=== PATIENT | male | born 1955 | race Caucasian/White ===

== ENCOUNTER → 2023-01-23 | Outpatient (CLI) | payer OTHER ==
--- NOTE | 2023-01-23 13:27 | XR ---
EXAMINATION TYPE: XR chest 2V DATE OF EXAM: 01/23/2023 1:13 PM COMPARISON: None TECHNIQUE: XR chest 2V Frontal and lateral views of the chest. CLINICAL INDICATION:Male, 67 years old with history of M23.92 [id number]; FINDINGS: Lungs/Pleura: There is flattening of the diaphragm with increased lucency of the lungs. No evidence o f pneumothorax, pleural effusion or focal consolidation. Pulmonary vascularity: Unremarkable. Heart/mediastinum: Cardiomediastinal silhouette is unremarkable. Musculoskeletal: No acute osseous pathology. IMPRESSION: 1. No acute cardiopulmonary disease process. 2. COPD changes.
[2023-01-23 13:49] LABS: Basophils % (A) 0 %; Eosinophils % (A) 1 %; HCT 42.8 % (39.0-53.0); HGB 14.8 gm/dL (13.0-17.5); Lymphocytes # (A) 1.5 k/uL (1.0-4.8); Lymphocytes % (A) 32 %; MCH 31.8 pg (25.0-35.0); MCHC 34.7 g/dL (31.0-37.0); MCV 91.8 fL (80.0-100.0); Mean Platelet Volume 7.2; Monocytes # (A) 0.3 k/uL (0-1.0); Monocytes % (A) 7 %; Neutrophils # (A) 2.6 k/uL (1.3-7.7); Neutrophils % (A) 57 %; Platelet Count 220 k/uL (150-450); RBC 4.66 m/uL (4.30-5.90); RDW 13.3 % (11.5-15.5); WBC 4.5 k/uL (3.8-10.6)
[2023-01-23 14:09] LABS: African American GFR (CKD) >90 (>60 ml/min/1.73 sqM); Anion Gap 8 mmol/L; Blood Urea Nitrogen 15 mg/dL (9-20); Carbon Dioxide 28 mmol/L (22-30); Chloride 96 mmol/L (98-107); Glucose 99 mg/dL (74-99); Non-African American GFR(CKD) >90 (>60 ml/min/1.73 sqM); Potassium 4.1 mmol/L (3.5-5.1); Sodium 132 mmol/L (137-145)
== END ==
LOC: PAT 12:24
PROVIDERS: ATTEND Orthopaedic Surgery
DX: Z01.818 Encounter for other preprocedural examination (principal); M23.92 Unspecified internal derangement of left knee
CPT/HCPCS: 36415; 71046; 80048; 85025; 93005

== ENCOUNTER 2023-01-29 12:12 | Day surgery (SDC) | payer OTHER ==
[2023-01-24 15:35] VITALS: BMI 28.5
--- NOTE | 2023-01-29 08:43 | P.HPOR ---
History of Present Illness H&P Date: 01/29/23 Chief Complaint: Left knee pain The patient is a 67-year-old retired gentleman who presents with left knee pain after injury golfing in October of this year. He notes medial pain and swelling along with intermittent locking and giving way. He's tried rest along with medications without much relief. He has daily symptoms that limit him. Review of Systems Negative except as in HPI Past Medical History Past Medical History: Asthma, COPD, GERD/Reflux, Hypertension, Sleep Apnea/CPAP/BIPAP Additional Past Medical History / Comment(s): USES C-PAP OFF AND ON AT TIMES History of Any Multi-Drug Resistant Organisms: None Reported Past Surgical History: Tonsillectomy Additional Past Surgical History / Comment(s): HEMATOMA GROIN CHILD. FATTY TUMOR REMVED FROM LEFT UPPER CHEST. THYROGLOSSAL STONE RT FRONT PAST OF NECK. COLONOSCOPIES Past Anesthesia/Blood Transfusion Reactions: No Reported Reaction Smoking Status: Current every day smoker - Past Family History Father Family Medical History: Cancer Mother Family Medical History: Cancer Medications and Allergies Home Medications Medication Instructions Recorded Confirmed Type Albuterol Sulfate [Proair 1 puff INHALATION Q6H PRN 01/24/23 01/24/23 History Respiclick] Aspirin EC [Ecotrin Low Dose] 81 mg PO DAILY 01/24/23 01/24/23 History Atorvastatin [Lipitor] 20 mg PO HS 01/24/23 01/24/23 History Fluticasone Propion/Salmeterol 1 inhalation PO BID 01/24/23 01/24/23 History [Fluticasone-Salmeterol 250-50] L.acidoph,Paracasei, B.lactis 1 each PO DAILY 01/24/23 01/24/23 History [Probiotic] Losartan/Hydrochlorothiazide 1 tab PO DAILY 01/24/23 01/24/23 History [Losartan-Hctz 100-12.5 mg Tab] Multivit-Mins/Iron/Folic/Lycop 1 each PO DAILY 01/24/23 01/24/23 History [Centrum Men's Tablet] [place]-3/Dha/Epa/Fish Oil [Fish Oil 1 each PO DAILY 01/24/23 01/24/23 History 500 mg Softgel] Pantoprazole [Protonix] 40 mg PO DAILY 01/24/23 01/24/23 History Sildenafil Citrate 50 mg PO DIRECTED 01/24/23 01/24/23 History Vitamin B Complex 1 each PO DAILY 01/24/23 01/24/23 History buPROPion HCL [buPROPion HCL Xl] 150 mg PO DAILY 01/24/23 01/24/23 History Allergies Allergy/AdvReac Type Severity Reaction Status Date / Time bee venom protein (honey bee) Allergy Anaphylaxis Verified 01/24/23 15:23 lisinopril Allergy Rash/Hives Verified 01/24/23 15:23 Physical Examination - Knee left Appearance: effusion Effusion grade: grade 1 Valgus alignment in stance: 5 degrees Tenderness with palpation: medial Pain: throughout ROM Gait: limping ROM: extension: -10 degrees ROM: flexion: 120 degrees Crepitus with motion: Yes Strength: extension: 5/5 Strength: flexion: 5/5 Meniscal tests: medial meniscal tests: positive, medial joint line pain: positive Results Patient is a well-developed well-nourished male approximately 6 foot tall, 210 pounds of mesomorphic habitus. HEENT exam is nonfocal, neck is supple. He has painless passive motion of his left hip. Straight leg raise negative. His distal neurovascular appears intact in the left lower extremity. - Diagnostic results Knee MRI: image reviewed (Left knee MRI shows evidence of a posterior medial meniscal tear) Assessment and Plan Assessment: Left knee internal derangement/symptomatic medial meniscal tear Plan: I talked with the patient with regarding his condition along with treatment options. At this point he is quite symptomatic and limited because of pain despite attempted conservative measures. After thorough discussion he opted to proceed with surgery. We'll plan to proceed with left knee arthroscopy with probable partial medial meniscectomy. Risks and benefits were discussed at length in layman's terms. We will likely perform that as an outpatient procedure.
[~2023-01-29 12:12] MED LIST: DEXAMETHASONE SOD PHOSPHATE 4 MG/ML 1 ML VIAL IV ONE; HYDROmorphone 0.5 MG/0.5 ML SYRINGE IVP PRN; LACTATED RINGERS 1,000 ML IV SCH; LIDOCAINE 1% (10MG/ML) FOR IV START INTRADERMA PRN; METOCLOPRAMIDE 5 MG/ML 2 ML VIAL IVP PRN; MIDAZOLAM 2 MG/2 ML VIAL IV PRN; ONDANSETRON 4 MG/2 ML VIAL IVP ONE; fentaNYL (PF) 50 MCG/ML 2 ML AMP IVP PRN
[2023-01-29 13:11] VITALS: RESP 16
[2023-01-29] MEDS ORDERED: fentaNYL (PF) 50 MCG/ML 2 ML AMP ONE (13:53)
[2023-01-29] MEDS ORDERED: LIDOCAINE 2% INJ 20 MG/ML (2 ML VIAL) ONE (13:53)
[2023-01-29] MEDS ORDERED: ROCURONIUM 10 MG/ML (5 ML VIAL) IV ONE (13:53)
[2023-01-29] MEDS ORDERED: GLYCOPYRROLATE 0.2 MG/ML 2 ML VIAL ONE (13:53)
[2023-01-29] MEDS ORDERED: PROPOFOL 10 MG/ML 20 ML VIAL IV ONE (13:53)
[2023-01-29] MEDS ORDERED: MIDAZOLAM 2 MG/2 ML VIAL ONE (13:53)
[2023-01-29] MEDS ORDERED: SUCCINYLCHOLINE CHLORIDE 200 MG/10 ML VIAL IV ONE (13:53)
[2023-01-29] MEDS ORDERED: NEOSTIGMINE 1 MG/ML 10 ML VIAL ONE (13:53)
--- NOTE | 2023-01-29 14:46 | P.OP ---
Date of Procedure: 01/29/23 Preoperative Diagnosis: Left knee internal derangement Postoperative Diagnosis: Left knee posterior medial meniscal tear Procedure(s) Performed: Left knee arthroscopic partial medial meniscectomy Anesthesia: BHARATA Surgeon: Eleno Henderson Estimated Blood Loss (ml): 10 Pathology: none sent Condition: stable Disposition: PACU Indications for Procedure: The patient's 67-year-old male who presents with progressive left knee pain and mechanical symptoms after a recent twisting injury. A discussion of the risks and benefits of operative intervention versus continued conservative measures. Patient. He opted to proceed with surgery. Operative risks to include infection, neurovascular injury, development of blood clots, possible incomplete resolution of symptoms, possible worsening symptoms and need for subsequent procedures was discussed. Informed consent was obtained. Operative Findings: As below Description of Procedure: The patient was brought to the operating room, and after induction of general anesthesia examined the left knee. Collaterals were stable, Parvez was negative, and posterior drawer was negative. The left lower extremity was prepped and draped in a normal fashion. A superior lateral portal was made through a 3 mm skin incision superior and lateral to the patella. This was used for outflow. A lateral portal was made through a 5 mm vertical skin incision lateral to the patella tendon above the joint line. Diagnostic arthroscopy was performed. On inspection of the medial compartment, a complex tear involving the posterior horn of the medial meniscus in the white-red junction was noted. This was debrided back to stable base with straight baskets and a motorized shaver. The remaining medial meniscus was stable and intact. Grade 2 -3 chondral changes were noted involving the posterior central portion of the medial femoral condyle. On inspection of the notch, the anterior cruciate ligament appeared to be intact. On inspection of the lateral compartment, no significant meniscal or cartilage pathology was noted.. On inspection of the patellofemoral articulation, there was grade 2-3 chondral changes diffusely.. The gutters were clear debris. The knee was then thoroughly irrigated. The portals were closed with Steri-Strips. A sterile dressing was applied in addition to a compression stocking. The patient was awoken from general anesthesia and transferred to recovery room in good condition. Blood loss was estimated at 10 mL. No complications were incurred.
[2023-01-29 14:57] VITALS: TEMP 96.8
[2023-01-29] MEDS ORDERED: HYDROcodone/APAP 5-325MG 1 EACH TAB PO ONE (15:53)
[2023-01-29] MEDS ORDERED: HYDROcodone/APAP 5-325MG 1 EACH TAB ONE (15:54)
[2023-01-29 16:14] VITALS: BP 144/84; PULSE 78
== END 2023-01-29 16:33 | disposition home or self-care (01) ==
LOC: OR 12:12
PROVIDERS: ATTEND Orthopaedic Surgery
DX: S83.232A Complex tear of medial meniscus, current injury, left knee, initial encounter (principal); X50.1XXA Overexertion from prolonged static or awkward postures, initial encounter; J44.9 Chronic obstructive pulmonary disease, unspecified; I10 Essential (primary) hypertension; G47.33 Obstructive sleep apnea (adult) (pediatric); F17.200 Nicotine dependence, unspecified, uncomplicated; F41.9 Anxiety disorder, unspecified; K21.9 Gastro-esophageal reflux disease without esophagitis; Z79.51 Long term (current) use of inhaled steroids; Z79.82 Long term (current) use of aspirin; Z79.899 Other long term (current) drug therapy; Z91.030 Bee allergy status; Z88.8 Allergy status to other drugs, medicaments and biological substances
CPT/HCPCS: 29881; J2250; J0330; J1100; J2710; J0690; J2405; J3010; J2704; J1170; J2001

== ENCOUNTER → 2025-03-14 | Outpatient (CLI) | payer OTHER ==
[2025-03-14 09:57] VITALS: BP 158/88; PULSE 74; RESP 16; TEMP 97.3
--- NOTE | 2025-03-14 16:52 | P.PAINPG ---
PQRS Measure Charge Sheet Comment: HISTORY OF PRESENT ILLNESS: A 69 yr old male as a referral from the [facility] presents today w severe and chronic LBP > 1 yr secondary to radiculopathy, spondylosis and facet arthropathy without myelopathy for evaluation. Pt states pain level is provoked at 8 /10 in intensity, constant, localized in the lumbar spine, predominantly axial, sore in character w occasional shooting pain towards the buttocks and hips. Pain is provoked by bending, standing/ walking for periods > 15 min. Pain is alleviated by PT x 6 wks which ended in 2022, physician guided home exercises 4-5 times weekly since 2022, heat, ice, medications, topical, repositioning and rest . Oswestry axial pain score at 29. PMH: OA, Asthma, COPD, GERD, HTN, LONG PSH: L Knee Arthroscopy (2022), Tonsillectomy, Colonoscopies SH: Daily tobacco use, No ETOH abuse, No illicit drug use FH: Fa- CA. Mo- CA All: See list Medications include Robaxin 500mg, Ibu, Lidocaine REVIEW OF ORGAN SYSTEMS: CONSTITUTIONAL: No fevers or chills. No recent weight loss. NEUROLOGICAL: + numbness and tingling along the distal extremities. No seizure disorders or headaches. MUSCULOSKELETAL: + pain PSYCHIATRIC: Denies current depression or suicidal thoughts. Physical Examinations : Constitutional : Cooperative , not in acute distress . Neurologic : Cranial nerve II to XII intact. No focal neurological deficits. Psychiatric : alert & oriented x 3. Matching mood & appropriate affect. Judgment & insight intact. Musculoskeletal : Cervical Spine Motor strength in the deltoid and biceps: Normal right side. Normal Left side Motor strength biceps and the wrist extensors: Normal right side . Normal left side Motor strength in the triceps muscle: Normal right side. Normal left side Deep tendon reflexes: Normal at the biceps. Normal at Brachioradialis. Normal at triceps Lhermitte Sign (cervical flexion) positive Vertebral body tenderness to deep palpation over Cervical facet loading test: positive bilaterally Spurling test: positive bilaterally Neck distraction test: positive bilaterally Daniel sign: positive bilaterally Shoulders Muscle bulk/ tone/ strength BL Resisted Internal Rotation positive R / positive L Resisted External Rotation positive R / positive L Empty Can Test positive R / positive L Drop Arm Test positive R / positive L Lumbar spine Motor strength lower extremities ,thigh and legs 5/5 Right side , 5/5 Left side Deep tendon reflexes : Normal Knee Jerk. Normal Ankle Jerk Vertebral body tenderness over L4 Fan Test positive Lumbar facet Loading Test: positive Right / positive Left Range of motion of the lumbar spine Flexion 30 degrees, extension 10 degrees Straight Leg Raise test: Left/ Right positive at < 35 degrees Drop foot reflex: positive R / positive L Mani test: positive right / positive left. Severe tenderness over the Sacroiliac joint on the Right / Left sides Gaenslen test: positive bilaterally Sacral spine : Severe tenderness over the Sacroiliac joint: right side / left side Range of motion: Flexion of the lumbar spine <60 degrees Range of motion: Extension of the lumbar spine <20 degrees Gaenslen's Test positive Mani test: positive right side / left side Thigh Thrust Test Sacral Thrust Test Hip Joint Antalgic walking gait positive Trendelenburg positive R / positive L Imaging: MRI non contrast lumbar spine from 12/13/24 reviewed Assessment/ Plan : L2-L5 radiculopathy, mild dextroscoliosis, facet arthropathy Recommendation of BL TFESI L4-L5 #1. Risks, benefits of procedure discussed and patient verbalized understanding. Admits to anti- coagulant use or medical history of diabetes. Protocol for discontinuation/ continuation of medications ted procedure discussed. Minimal anesthesia provided, if clinically indicated, consisting of Versed and Fentanyl. All questions answered. I have spent greater than 30 minutes on patient care today. Dr Gonzalez was available by phone for the evaluation of this patient. The time was used to review the medical records including relevant urine studies and Prescription history (MAPs), review of the available imaging, evaluation and examination of the patient, coordination of care with the medical staff and if applicable referring physicians, as well as creation of the medical record - Pain Location Bilateral Lower Back Non-Pharmacological Interventions: Chiropractic Treatment, Heat, Home Exercise, Ice, Inactivity, Position/Reposition, Sitting, Stretching, TENS Unit Pharmacological Interventions: PRN Medication Home Medications: Ambulatory Orders Albuterol Sulfate [Proair Respiclick] 1 puff INHALATION Q6H PRN 01/24/23 Aspirin EC [Ecotrin Low Dose] 81 mg PO DAILY 01/24/23 Atorvastatin [Lipitor] 20 mg PO HS 01/24/23 Fluticasone Propion/Salmeterol [Fluticasone-Salmeterol 250-50] 1 inhalation PO BID 01/24/23 Losartan/Hydrochlorothiazide [Losartan-Hctz 100-12.5 mg Tab] 1 tab PO DAILY 01/24/23 Multivit-Mins/Iron/Folic/Lycop [Centrum Men's Tablet] 1 each PO DAILY 01/24/23 [place]-3/Dha/Epa/Fish Oil [Fish Oil 500 mg Softgel] 1 each PO DAILY 01/24/23 Pantoprazole [Protonix] 40 mg PO DAILY 01/24/23 Sildenafil Citrate 50 mg PO DIRECTED 01/24/23 buPROPion HCL [buPROPion HCL Xl] 150 mg PO DAILY 01/24/23 Controlled Substance Measures - Controlled Substance Measures Is patient prescribed a controlled substance at discharge?: No
== END ==
LOC: PNWHC3 09:26
PROVIDERS: ATTEND Specialist
DX: M47.26 Other spondylosis with radiculopathy, lumbar region (principal); M41.9 Scoliosis, unspecified; Z91.030 Bee allergy status; Z88.8 Allergy status to other drugs, medicaments and biological substances
CPT/HCPCS: 99211